=== PATIENT | male | born 1955 | race Caucasian/White ===

== ENCOUNTER → 2017-07-19 | Outpatient (CLI) | payer OTHER ==
--- NOTE | 2017-07-20 10:04 | XCELERA REPORT ---
[address] [address] Transthoracic Echocardiogram Report Name: YAMILET STERLING Age: 62 yrs Gender: Male : 1955 Patient Status: Outpatient Patient Location: Study Date: 07/19/2017 02:59 PM Height: 65.5 in Weight: 213 lb BSA: 2.0 m2 Procedure: A complete two-dimensional transthoracic echocardiogram was performed (2D, M-mode, spectral and color flow Doppler). The study was technically difficult with many images being suboptimal in quality. Reason For Study: I50.20 Ordering Physician: AYESHA ALANIS Performed By: Onelia Wolf Interpretation Summary The study was technically difficult with many images being suboptimal in quality. Left ventricular systolic function is moderately reduced. Consider additional methods to assess LVEF such as MUGA scan, CTA heart, cardiac MRI, JOHN, etc. if clinically indicated. Best estimated LV EF is 35% Doppler measurements suggest pseudonormalized left ventricular relaxation, which is associated with grade II/IV or mild to moderate diastolic dysfunction Not all wall segments were well visualized. There is apical wall akinesis There is mid to distal anterior wall severe hypokinesis The right ventricle is grossly normal size. The left atrium is mildly dilated. The right atrium is normal in size There is a mild amount of mitral regurgitation There is no mitral valve stenosis. There is a mild amount of aortic regurgitation There is no aortic valve stenosis There is a trace or physiologic amount of tricuspid regurgitation Right ventricular systolic pressure is at the upper limits of normal. Best Estimated PA pressure 30 mmhg The aortic root is not well visualized but is probably normal size. The inferior vena cava was not well visualized There is no pericardial effusion. MMode/2D Measurements & Calculations RVDd: 3.5 cm LVIDd: 7.3 cm FS: 33.9 % EPSS: 1.7 cm IVSd: 0.98 cm LVIDs: 4.8 cm EDV(Teich): 276.8 ml LVPWd: 1.0 cm ESV(Teich): 107.4 ml EF(Teich): 61.2 % Ao root diam: 4.2 cm LVOT diam: 2.6 cm Ao root area: 13.6 cm2 LVOT area: 5.2 cm2 Doppler Measurements & Calculations MV E max lui: MV dec slope: Ao V2 max: AI max lui: 49.5 cm/sec 254.0 cm/sec2 101.4 cm/sec 237.4 cm/sec MV A max lui: MV dec time: Ao max PG: AI max P.4 cm/sec 0.20 sec 4.1 mmHg 22.5 mmHg MV E/A: 0.44 ILDA(V,D): 3.7 cm2 AI dec slope: 86.5 cm/sec2 AI P1/2t: 803.8 msec LV V1 max PG: PA V2 max: PI end-d lui: TR max lui: 2.1 mmHg 80.0 cm/sec 148.0 cm/sec 176.1 cm/sec LV V1 max: PA max P.6 mmHg TR max P.2 cm/sec 12.4 mmHg Left Ventricle The left ventricle is moderately dilated. There is borderline concentric left ventricular hypertrophy. Left ventricular systolic function is moderately reduced. Consider additional methods to assess LVEF such as MUGA scan, CTA heart, cardiac MRI, JOHN, etc. if clinically indicated. LV EF is 35%. Doppler measurements suggest pseudonormalized left ventricular relaxation, which is associated with grade II/IV or mild to moderate diastolic dysfunction. Not all wall segments were well visualized. There is apical wall akinesis. There is mid to distal anterior wall severe hypokinesis. Right Ventricle The right ventricle is grossly normal size. The right ventricular systolic function is normal. Atria The right atrium is normal in size. The left atrium is mildly dilated. Interarterial septum not well visualized and not well dopplered. Cannot comment on ASD/PFO presence. Mitral Valve There is mild mitral annular calcification. There is no mitral valve stenosis. There is a mild amount of mitral regurgitation. Aortic Valve The aortic valve is sclerotic, but shows no functional abnormality. There is no aortic valve stenosis. There is a mild amount of aortic regurgitation. Tricuspid Valve The tricuspid valve is not well visualized secondary to technical limitations. There is no tricuspid stenosis. There is a trace or physiologic amount of tricuspid regurgitation. Right ventricular systolic pressure is at the upper limits of normal. Pulmonic Valve The pulmonic valve is not well visualized. Great Vessels The aortic root is not well visualized but is probably normal size. The inferior vena cava was not well visualized. Effusions There is no pericardial effusion. Incidental Findings Pacemaker wire noted. : AYESHA ALANIS > Ruslan Butlre
== END ==
LOC: SP 14:13
DX: I50.20 Unspecified systolic (congestive) heart failure (principal)
CPT/HCPCS: 93306